=== PATIENT | male | born 1990 | race Caucasian/White ===

== ENCOUNTER 2021-05-26 11:34 | Emergency (ER) | payer MEDICAID ==
[~2021-05-26] VITALS: Ht 180.3 cm; Wt 68.0 kg
[2021-05-26 11:42] VITALS: BP 131/76
--- NOTE | 2021-05-26 11:46 | NUR ---
Lurdes davalos in [facility] - 05/26/21 at 1150 by FERMIN Patient ambulated to bed 8.
--- NOTE | 2021-05-26 11:49 | NUR ---
Lurdes davalos in [facility] - 05/26/[address] at [address] Morrow at bedside evaluating patient.
--- NOTE | 2021-05-26 12:04 | NUR ---
DR STACY AT BEDSIDE FOR MSE
[2021-05-26] MEDS ORDERED: NACL 0.9% 1,000 ML IV SCH (12:05)
--- NOTE | 2021-05-26 12:15 | NUR ---
PT TAKEN TO CT BY CHAPERON VIA WC
--- NOTE | 2021-05-26 12:15 | NUR ---
BLOOD WORK WALKED TO LAB
--- NOTE | 2021-05-26 12:21 | NUR ---
PT BACK FROM CT
[2021-05-26 12:24] LABS: APPEARANCE,URINE SL CLOUDY (CLEAR); BILIRUBIN,URINE 1+ (NEGATIVE); BLOOD, URINE 2+ (NEGATIVE); COLOR,URINE AMBER (YELLOW); LEUKOCYTE ESTERASE ,URINE NEGATIVE (NEGATIVE); NITRITE, URINE NEGATIVE (NEGATIVE); UGLUCOSE NEGATIVE (NEGATIVE)
[2021-05-26 12:44] LABS: ALBUMIN 4.2 g/dL (3.4-5.0); ANION GAP 13.6 (8-16); CARBON DIOXIDE 27.6 mmol/L (21-32); CREATININE 0.8 mg/dL (0.6-1.3); POTASSIUM 4.2 mmol/L (3.5-5.1); TOTAL BILIRUBIN 0.7 mg/dL (0.0-1.0)
[2021-05-26 12:50] LABS: BASOPHILS % (AUTO) 0.5 % (0.0-2.0); EOSINOPHILS # (AUTO) 0.1 K/uL (0-0.4); HEMATOCRIT 42.5 % (36-52); HEMOGLOBIN 14.5 g/dL (12.0-18.0); LYMPHOCYTES # (AUTO) 1.3 K/uL (2.0-11.5); LYMPHOCYTES % (AUTO) 23.5 % (20.5-51.1); MEAN CORPUSCULAR HEMOGLOBIN 29 pg (27-31); MEAN CORPUSCULAR HGB CONC 34 g/dL (33-37); MEAN CORPUSCULAR VOLUME 86.3 fL (80-94); MONOCYTES # (AUTO) 0.5 K/uL (0.8-1.0); MONOCYTES % (AUTO) 8.8 % (1.7-9.3); NEUTROPHILS # (AUTO) 3.6 K/uL (1.8-7.7); NEUTROPHILS % (AUTO) 65.2 % (42.2-75.2); PLATELET COUNT (AUTO) 228 K/uL (140-450); RED BLOOD CELL COUNT(AUTO) 4.93 MIL/uL (4.20-6.10); RED CELL DISTRIBUTION WIDTH 13.2 % (11.6-13.7); WHITE BLOOD COUNT (AUTO) 5.5 K/uL (4.8-10.8)
[2021-05-26 12:56] LABS: RBC,URINE 0-5 /HPF (0-5)
[2021-05-26 12:57] LABS: WBC,URINE 0-5 /HPF (0-5)
[2021-05-26 12:58] LABS: CALCIUM OXALATE CRYSTALS,UR None Seen /HPF (None Seen); OTHER CRYSTALS,URINE None Seen /HPF (None Seen); TRICHOMONAS,URINE None Seen /HPF (None Seen); TRIPLE PHOSPHATE CRYSTAL,UR None Seen /HPF (None Seen); URIC ACID CRYSTALS,URINE None Seen /HPF (None Seen); URINE AMORPHOUS URATE None Seen /HPF (None Seen); YEAST,URINE None Seen /HPF (None Seen)
[2021-05-26 12:59] LABS: COARSE GRANULAR CASTS,URINE None Seen /LPF (None Seen); FINE GRANULAR CASTS,URINE None Seen /LPF (None Seen); HYALINE CASTS, URINE None Seen /LPF (None Seen); OTHER CASTS, URINE None Seen /LPF (None Seen); RED BLOOD CELL CASTS,URINE None Seen /LPF (None Seen); WAXY CASTS,URINE None Seen /LPF (None Seen)
[2021-05-26] MEDS ORDERED: CIPR500T4 PO (12:59)
--- NOTE | 2021-05-26 13:27 | NUR ---
IV removed, catheter intact and site benign. Applied folded 4x4 gauze and tape to stop bleeding.
[2021-05-26 13:29] VITALS: BP 125/82
== END 2021-05-26 13:29 | disposition home or self-care (01) ==
LOC: MED 11:34
DX: R31.9 Hematuria, unspecified (principal); N39.0 Urinary tract infection, site not specified; R30.0 Dysuria; F17.200 Nicotine dependence, unspecified, uncomplicated; Z79.899 Other long term (current) drug therapy
CPT/HCPCS: 36415; 74176; 80053; 81001; 83690; 85025; 96360; 99284; J7030